=== PATIENT | female | born 1995 | race Caucasian/White ===

== ENCOUNTER 2021-10-28 10:54 | Emergency (ER) | payer OTHER, SELFPAY ==
[2021-10-28 12:23] VITALS: BP 144/91; PULSE 102; RESP 16; TEMP 37.1; O2SAT 97; BMI 31.7
--- NOTE | 2021-10-28 12:49 | HMH.EDUTC ---
[facility] Disposition Clinical Impression: Acute bronchitis Qualifiers: Bronchitis organism: unspecified organism Qualified Code(s): J20.9 - Acute bronchitis, unspecified Disposition: Home, Self-Care Condition on Discharge: Good Instructions: DI for Acute Bronchitis Additional Instructions: Drink plenty of fluids. Take tylenol or ibuprofen for pain or fever. Take the medications as directed. Follow up with your regular doctor. GO TO THE ER FOR ANY WORSENING SYMPTOMS The cough medication (promethazine dm) will make you drowsy, so don't drive or operate heavy machinery after taking it. Prescriptions: Albuterol Sulfate [Albuterol Sulfate Hfa] 2 puffs IH Q6HP PRN 30 Days #1 each PRN Reason: Shortness Of Breath Transmission Status: Received by [employer] Promethazine/Dextromethorphan [Promethazine-Dm Syrup] 5 ml PO Q6HP PRN #240 ml PRN Reason: Cough Transmission Status: Received by [employer] methylPREDNISolone [Medrol] 4 mg PO DIRECTED 6 Days #21 packet Transmission Status: Received by [employer] Azithromycin [Z-Shaheed 250mg Tab*] 250 mg PO UD DOSE PK #6 tab Transmission Status: Received by [employer] Referrals: Provider,Referral, [Primary Care Provider] - Forms: Work/School Release Time of Disposition: 13:05 Medical Decision Making - Medical Records Medical records reviewed: No: I reviewed the patient's medical records. - Henry Inquiry Pt receiving controlled substance: No Vital Signs: 10/28/21 12:23 10/28/21 13:06 Temperature 98.7 F 98.7 F Temperature Source Oral Oral Pulse Rate 85 Pulse Rate [Left] 102 H Respiratory Rate 16 18 Blood Pressure 135/82 Blood Pressure [Right Arm] 144/91 H Blood Pressure Mean [Right Arm] 108 02 Sat by Pulse Oximetry 97 Oxygen Delivery Method Room Air - Lab Data Lab Results 10/28/21 12:14: Influenza Type A Ag Negative, Influenza Type B Ag Negative [facility] HPI - General Stated complaint: cough, congestions, bodyaches, fever Time Seen by Provider: 10/28/21 12:40 Mode of Arrival: Ambulatory Source of Information: Patient Description of Symptoms (Recalled from Triage Doc. by RN): pt states that she has flu like symtpoms. cough, fever, congestion, aches. symptoms started 5 days ago HEENT Symptoms (Recalled from RN notes): Yes Resp Symptoms (Recalled from RN notes): Yes Skin Symptoms (Recalled from RN notes): No MS Symptoms (Recalled from RN notes): No Functional Status (Recalled from RN notes): wnl - History of Present Illness Provider Complaint: She states that she has had a cough, chest congestion, sinus congestion, wheezing and a scratchy throat for the past 3 days. She denies any fever/chills/body aches. - Related Data Previous Rx's Medication Instructions Recorded Albuterol Sulfate [Albuterol 2 puffs IH Q6HP PRN 30 Days #1 each 10/28/21 Sulfate Hfa] Azithromycin [Z-Shaheed 250mg Tab*] 250 mg PO UD DOSE PK #6 tab 10/28/21 Promethazine/Dextromethorphan 5 ml PO Q6HP PRN #240 ml 10/28/21 [Promethazine-Dm Syrup] methylPREDNISolone [Medrol] 4 mg PO DIRECTED 6 Days #21 10/28/21 packet - Worker's Comp Is this a Worker's Comp case?: No [facility] History - Hepatitis A Screen Attestation statement:: This patient has been screened for Hepatitis A risk factors. I have reviewed the patient's past medical history: Yes ROS Obtained: Yes All systems reviewed & no additional complaints - Constitutional Constitutional: Reports as per HPI - Eyes Eyes: Denies eye discharge - ENT Ears, Nose, Mouth, and Throat: Reports as per HPI - Cardiovascular Cardiovascular: Denies chest pain Physical Exam - General General appearance: alert, in no apparent distress - Head Head exam: atraumatic, normocephalic, normal inspection - Eye Eye exam: Present: normal appearance, PERRL, EOMI - ENT ENT exam: Present: normal exam, normal oropharynx, mucous membranes moist, TM's normal bilate
[2021-10-28 13:06] VITALS: BP 135/82; PULSE 85; RESP 18; TEMP 37.1
[2021-10-28 13:07] LABS: UTC Influenza A Antigen Negative (Negative); UTC Influenza B Antigen Negative (Negative)
== END 2021-10-28 13:11 | disposition home or self-care (01) ==
PROVIDERS: Emergency Provider Nurse Practitioner Family
DX: J20.9 Acute bronchitis, unspecified (principal)
CPT/HCPCS: 87804; 99212; G0463

== ENCOUNTER 2022-07-28 11:50 | Emergency (ER) | payer OTHER, SELFPAY ==
[2022-07-28 12:00] VITALS: BP 152/92; PULSE 94; RESP 20; TEMP 36.9; O2SAT 98; BMI 33.3
[2022-07-28 12:22] LABS: UTC Strep Screen (Rapid) Negative (Negative)
--- NOTE | 2022-07-28 12:28 | EXP.UTC ---
Discharge Plan Disposition Patient Disposition: Home, Self-Care Condition: Good Prescriptions Prescriptions: New azithromycin [Zithromax Z-Shaheed] 250 mg tablet See Rx Instructions .ROUTE .COMPLEX 5 Days Qty: 6 0RF Rx Instructions: For 250 mg dose pack: take 500 mg today (day 1), then 250 mg for 4 days (days 2-5) No Action norgestimate-ethinyl estradiol 0.25-35 mg-mcg tablet 1 tab PO fluoxetine 40 mg capsule 40 mg PO DAILY Qty: 90 1RF hydroxyzine pamoate [Vistaril] 50 mg capsule 50 mg PO TID PRN (Reason: anxiety) Qty: 90 0RF trazodone 50 mg tablet 50 mg PO QHS PRN (Reason: sleep) Qty: 30 1RF Referrals Follow up/Referrals: Provider,Referral, MD [Primary Care Provider] - See instructions Activity Restrictions/Add. Instructions Additional Instructions/Restrictions: *Monitor Temp, Over the counter Motrin or Tylenol as directed/as needed Tylenol every 4 hours and Motrin every 6 hours (as long as your family doctor has told you that you can take it) for fever or pain. and straight to ER if unable to lower temp less than 101.0 after medication given *Warm salt water gargles may help to soothe the throat *Throat Lozenges? *Warm fluids like tea with honey may help to soothe the throat? *Sleep elevated *Humidifier/Vaporizer Your throat swab was sent for culture. Those results are typically sent to your primary care. Be sure to follow up in 2-3 days with your family doctor/primary care physician if no improvement so they can review those result and treat if necessary. If you don?t have a primary care doctor, I recommend you get one but in the mean time, you will have to return to a walk in clinic Follow up IMMEDIATELY for new or worsening symptoms or no Noticeable improvement over the next 48-72 hours. 911 for difficulty breathing or swallowing Clinical Impressions Clinical Impression: Pharyngitis Instructions Patient Instructions: Sore Throat, Strep Throat Discharge ED Provider: Ghazala Canas [facility] [place] HPI General Stated complaint: sore throat, tonsils swollen Mode of Arrival: Ambulatory Source of Information: Patient Limitations: No Limitations Time Seen by Provider: 07/28/22 12:28 Description of Symptoms (Recalled from Triage Doc. by RN): PATIENT C/O SORE THROAT AND SWOLLEN TONSILS SINCE YESTERDAY MORNING HEENT Symptoms (Recalled from RN notes): Yes Resp Symptoms (Recalled from RN notes): No Skin Symptoms (Recalled from RN notes): No MS Symptoms (Recalled from RN notes): No Functional Status (Recalled from RN notes): WNL History of Present Illness Provider Complaint: Patient states that she started yesterday with sore throat swollen lymph nodes and swollen tonsils States that it has continued to get worse and today her throat was hurting worse so she came in to get checked out Related Data Home Medications Medication Instructions Recorded Confirmed norgestimate 0.25 mg-ethinyl 1 tab PO 02/14/22 05/05/22 estradiol 35 mcg tablet Previous Rx's Medication Instructions Recorded fluoxetine 40 mg capsule 40 mg PO DAILY #90 caps 02/14/22 hydroxyzine pamoate 50 mg capsule 50 mg PO TID PRN anxiety #90 caps 02/14/22 (Vistaril) trazodone 50 mg tablet 50 mg PO QHS PRN sleep #30 tabs 05/05/22 azithromycin 250 mg tablet See Rx Instructions PO .COMPLEX 5 07/28/22 (Zithromax Z-Shaheed) days #6 tabs Allergies Allergy/AdvReac Type Severity Reaction Status Date / Time No Known Allergies Allergy Verified 05/05/22 08:24 Worker's Comp Is this a Worker's Comp case?: [facility] Disclaimer: The information contained in this section may have been updated after the patient was seen, as this information can be updated by other users. Medical History (Updated 07/28/22 @ 12:34 by Ghazala Canas APRN) Generalized anxiety disorder Grief Major depressive disorder Social History (Updated 07/28/22 @ 12:17 by Tarah Pringle RN) Smoking Status: Ne
[2022-07-28 12:37] VITALS: BP 152/92; PULSE 94; RESP 20; TEMP 36.9; O2SAT 98
== END 2022-07-28 12:40 | disposition home or self-care (01) ==
PROVIDERS: Emergency Provider Nurse Practitioner
DX: J02.9 Acute pharyngitis, unspecified (principal)
CPT/HCPCS: 87880; 99212; G0463

== ENCOUNTER → 2022-09-04 12:33 | Outpatient (CLI) | payer OTHER, SELFPAY ==
[2022-09-04 13:25] LABS: Coronavirus 19, PCR Not Detected (NotDetected); Influenza A, PCR Not Detected (NotDetected); Influenza B, PCR Not Detected (NotDetected)
== END ==
PROVIDERS: Visit Provider Nurse Practitioner Family
DX: Z20.822 Contact with and (suspected) exposure to COVID-19 (principal)
CPT/HCPCS: C9803; U0003; U0005

== ENCOUNTER 2022-09-06 09:49 | Emergency (ER) | payer OTHER, SELFPAY ==
[2022-09-06 09:55] VITALS: BP 111/81; PULSE 117; RESP 22; TEMP 37.3; O2SAT 98; BMI 31.9
[2022-09-06 10:12] LABS: UTC Strep Screen (Rapid) Negative (Negative)
[2022-09-06 10:21] VITALS: BP 111/81; PULSE 117; RESP 22; TEMP 37.3; O2SAT 98
--- NOTE | 2022-09-06 10:23 | EXP.UTC ---
Discharge Plan Disposition Patient Disposition: Home, Self-Care Condition: Good Prescriptions Prescriptions: New promethazine-DM 6.25-15 mg/5 mL syrup 5 ml PO Q6H PRN (Reason: cough) Qty: 118 0RF No Action norgestimate-ethinyl estradiol 0.25-35 mg-mcg tablet 1 tab PO DAILY fluoxetine 40 mg capsule 40 mg PO DAILY trazodone 50 mg tablet 50 mg PO HSP PRN (Reason: sleep) hydroxyzine pamoate [Vistaril] 50 mg capsule 50 mg PO TIDP PRN (Reason: anxiety) Referrals Follow up/Referrals: Provider,Referral, MD [Primary Care Provider] - See instructions Activity Restrictions/Add. Instructions Additional Instructions/Restrictions: URI/COLD * No sign of bacterial infection. Likely viral. Virus can take 7-14 days to run their course *Nasal saline and bulb syringe or nose brigid to remove nasal drainage and help with nasal congestion. Hard to eat, drink, or sleep with nasal congestion so important to keep nose cleaned out. *Monitor Temp, Over the counter Motrin or Tylenol as directed/as needed Tylenol every 4 hours and Motrin every 6 hours (as long as your family doctor has told you that you can take it) for fever or pain. and straight to ER if unable to lower temp less than 101.0 after medication given *Warm salt water gargles may help to soothe the throat *Throat Lozenges? *Warm fluids like tea with honey may help to soothe the throat? *Sleep elevated *Humidifier/Vaporizer *Flonase 2 sprays in each nostril daily but be aware that it may take 2-3 days before you notice improvement *Bromfed may cause drowsiness. Know how it effects you (your child) before driving, caring for small child, or sending your child to school. Not other antihistamines/allergy medications while taking bromfed Your throat swab was sent for culture. Those results are typically sent to your primary care. Be sure to follow up in 2-3 days with your family doctor/primary care physician if no improvement so they can review those result and treat if necessary. If you don?t have a primary care doctor, I recommend you get one but in the mean time, you will have to return to a walk in clinic Follow up IMMEDIATELY for new or worsening symptoms or no Noticeable improvement over the next 48-72 hours. 911 for difficulty breathing or swallowing You were tested for today for COVID19 your test result should be back in the next 24-48 hours, you may call to the [facility] to see if your test results are back in the next 48 hours ?[phone] [facility] hours are 9am-9pm You was given a handout with instructions for Self Quarantine and Self isolation for while you wait on test results and what to do if they are positive If you are positive the Health Dept will be contacting you also Make sure to take your Vitamins Vit. C Vit D and Zinc if you can take them Clinical Impressions Clinical Impression: Upper respiratory tract infection Instructions Patient Instructions: DI for Viral Upper Respiratory Infection -- Adult Discharge ED Provider: Erika Jimenez [facility] [place] HPI General Stated complaint: Sore throat, swollen throat,cough Mode of Arrival: Ambulatory Source of Information: Patient Limitations: No Limitations Time Seen by Provider: 09/06/22 10:23 Description of Symptoms (Recalled from Triage Doc. by RN): PATIENT C/O SORE THROAT, COUGH, AND SWOLLEN TONSILS AND LYMPH NODES SINCE THURSDAY HEENT Symptoms (Recalled from RN notes): Yes Resp Symptoms (Recalled from RN notes): No Skin Symptoms (Recalled from RN notes): No MS Symptoms (Recalled from RN notes): No Functional Status (Recalled from RN notes): WNL Related Data Home Medications Medication Instructions Recorded Confirmed norgestimate 0.25 mg-ethinyl 1 tab PO DAILY control 02/14/22 09/06/22 estradiol 35 mcg tablet fluoxetine 40 mg capsule 40 mg PO DAILY Anxiety 09/06/22 09/06/22 hydroxyzine pamoate 50 mg capsule 50 mg PO TIDP PRN anxiety 09/06/22 09/06/22 (Vistaril) tra
== END 2022-09-06 10:34 | disposition home or self-care (01) ==
PROVIDERS: Emergency Provider Nurse Practitioner Family
DX: J06.9 Acute upper respiratory infection, unspecified (principal); R07.0 Pain in throat; B34.9 Viral infection, unspecified
CPT/HCPCS: 87880; 99212; 99214; G0463

== ENCOUNTER 2022-09-08 08:59 | Emergency (ER) | payer OTHER, SELFPAY ==
[2022-09-08 09:05] VITALS: BP 136/84; PULSE 116; RESP 17; TEMP 37.3; O2SAT 99; BMI 18.5
--- NOTE | 2022-09-08 09:50 | EXP.UTC ---
Discharge Plan Disposition Patient Disposition: Home, Self-Care Condition: Good Prescriptions Prescriptions: No Action norgestimate-ethinyl estradiol 0.25-35 mg-mcg tablet 1 tab PO DAILY fluoxetine 40 mg capsule 40 mg PO DAILY trazodone 50 mg tablet 50 mg PO HSP PRN (Reason: sleep) hydroxyzine pamoate [Vistaril] 50 mg capsule 50 mg PO TIDP PRN (Reason: anxiety) promethazine-DM 6.25-15 mg/5 mL syrup 5 ml PO Q6H PRN (Reason: cough) Qty: 118 0RF Referrals Follow up/Referrals: Provider,Referral, MD [Primary Care Provider] - See instructions Activity Restrictions/Add. Instructions Additional Instructions/Restrictions: *Monitor Temp, Over the counter Motrin or Tylenol as directed/as needed Tylenol every 4 hours and Motrin every 6 hours (as long as your family doctor has told you that you can take it) for fever or pain. and straight to ER if unable to lower temp less than 101.0 after medication given *Warm salt water gargles may help to soothe the throat *Throat Lozenges? *Warm fluids like tea with honey may help to soothe the throat? *Sleep elevated *Humidifier/Vaporizer Your throat swab was sent for culture. Those results are typically sent to your primary care. Be sure to follow up in 2-3 days with your family doctor/primary care physician if no improvement so they can review those result and treat if necessary. If you don?t have a primary care doctor, I recommend you get one but in the mean time, you will have to return to a walk in clinic Follow up IMMEDIATELY for new or worsening symptoms or no Noticeable improvement over the next 48-72 hours. 911 for difficulty breathing or swallowing Clinical Impressions Clinical Impression: Viral upper respiratory infection Stand Alone Forms Stand Alone Forms: Work/School Release Instructions Patient Instructions: DI for Fever (Symptom) -- Adult, DI for Viral Upper Respiratory Infection -- Adult Discharge ED Provider: Ghazala Canas [facility] [place] HPI General Stated complaint: Fever, sore throat, cough Mode of Arrival: Ambulatory Source of Information: Patient Limitations: No Limitations Time Seen by Provider: 09/08/22 09:50 Description of Symptoms (Recalled from Triage Doc. by RN): PATIENT C/O FEVER SINCE THURSDAY, SORE THROAT THIS MORNING AND COUGH SINCE LAST THURSDAY HEENT Symptoms (Recalled from RN notes): Yes Resp Symptoms (Recalled from RN notes): Yes Skin Symptoms (Recalled from RN notes): No MS Symptoms (Recalled from RN notes): No Functional Status (Recalled from RN notes): WNL History of Present Illness Provider Complaint: Patient states that she hasnt felt well in several days States that she has been having fever on and off, cough and woke up this morning with sore throat States that she had [place] a few years back and feels like it did then Related Data Home Medications Medication Instructions Recorded Confirmed norgestimate 0.25 mg-ethinyl 1 tab PO DAILY control 02/14/22 09/06/22 estradiol 35 mcg tablet fluoxetine 40 mg capsule 40 mg PO DAILY Anxiety 09/06/22 09/06/22 hydroxyzine pamoate 50 mg capsule 50 mg PO TIDP PRN anxiety 09/06/22 09/06/22 (Vistaril) trazodone 50 mg tablet 50 mg PO HSP PRN sleep 09/06/22 09/06/22 Previous Rx's Medication Instructions Recorded promethazine-DM 6.25 mg-15 mg/5 mL 5 ml PO Q6H PRN cough #118 mL 09/06/22 oral syrup Allergies Allergy/AdvReac Type Severity Reaction Status Date / Time No Known Allergies Allergy Verified 05/05/22 08:24 Worker's Comp Is this a Worker's Comp case?: No [facility] Disclaimer: The information contained in this section may have been updated after the patient was seen, as this information can be updated by other users. Medical History (Updated 09/08/22 @ 11:15 by Ghazala Canas APRN) Generalized anxiety disorder Grief Major depressive disorder Social History (Updated 07/28/22 @ 12:17 by Tarah Pringle RN)
[2022-09-08 10:29] LABS: UTC Strep Screen (Rapid) Negative (Negative)
[2022-09-08 10:47] LABS: Monoscreen (Rapid) Negative (Negative)
[2022-09-08 10:54] VITALS: BP 136/84; PULSE 116; RESP 17; TEMP 37.3; O2SAT 99
== END 2022-09-08 11:18 | disposition home or self-care (01) ==
PROVIDERS: Emergency Provider Nurse Practitioner
DX: J06.9 Acute upper respiratory infection, unspecified (principal); R07.0 Pain in throat; R50.9 Fever, unspecified; B34.9 Viral infection, unspecified
CPT/HCPCS: 86318; 87880; 99212; 99213; G0463